=== PATIENT | female | born 1945 | race Caucasian/White ===

== ENCOUNTER 2019-12-13 11:16 | Inpatient (IN) | payer MEDICARE, OTHER ==
[2019-12-10 13:53] LABS: BASOPHILS # (AUTO) 0.1 (0.0-0.1); BASOPHILS % 0.7 % (0.0-1.0); EOSINOPHILS # (AUTO) 0.1 (0.0-0.4); EOSINOPHILS % 1.4 % (0.0-6.0); HEMATOCRIT 39.6 % (34.2-44.1); HEMOGLOBIN 10.4 g/dL (12.0-16.0); LYMPHOCYTES # (AUTO) 2.6 (1.0-3.2); LYMPHOCYTES % 29.9 % (18.0-39.1); MEAN CORPUSCULAR HEMOGLOBIN 18.7 pg (28-32); MEAN CORPUSCULAR HGB CONC 26.3 g/dL (31-35); MEAN CORPUSCULAR VOLUME 71.4 fL (81-99); MONOCYTES # (AUTO) 1.2 (0.2-0.8); MONOCYTES % 14.1 % (4.4-11.3); NEUTROPHILS # (AUTO) 4.6 (2.1-6.9); NEUTROPHILS % 53.6 % (38.7-80.0); PLATELET COUNT 540 x10e3/uL (140-360); RED BLOOD COUNT 5.55 x10e6/uL (3.6-5.1); RED CELL DISTRIBUTION WIDTH 22.7 % (11.7-14.4)
--- NOTE | 2019-12-10 14:21 | Diagnostic Imaging Report ---
EXAMINATION: CHEST 2 VIEWS INDICATION: Pre-operative COMPARISON: Chest radiograph of 01/22/2011 FINDINGS: LINES/TUBES:None LUNGS:The lungs are well-inflated. No focal consolidation or pulmonary edema. Unchanged right hemidiaphragmatic elevation. PLEURA:No pleural effusion or pneumothorax. MEDIASTINUM:The cardiomediastinal silhouette appears normal in size and shape. BONES/SOFT TISSUES:No acute osseous injury. ABDOMEN:No free air under the diaphragm. IMPRESSION: No focal pneumonia or pulmonary edema. Signed by: Diya Soto MD on 12/10/2019 2:18 PM
[~2019-12-13] VITALS: Ht 162.6 cm; Wt 65.8 kg
[~2019-12-13 11:16] MED LIST: AMLODIPINE BESYL5 MG PO; CALCET TABLET1 EACH PO; HEPARIN SOD/SOD CHLORIDE 1,000 ML ONE; IRON PO; LEVOTHYROXINE88 MCG PO; OMEPRAZOLE40 MG PO
[2019-12-13] MEDS ORDERED: ANTIBIOTIC PO (11:50)
[2019-12-13] MEDS ORDERED: CEFAZOLIN SOD 1 GM/NS 50ML 50 ML IV ONE (11:54)
[2019-12-13] MEDS ORDERED: DIPHENHYDRAMINE HCL INJ 50 MG/ML VIAL IM PRN (15:45)
[2019-12-13] MEDS: SODIUM CHLORIDE 0.9% 250ML IRRIG IR SCH ×2 (15:45→20:45)
[2019-12-13] MEDS ORDERED: MORPHINE SULFATE 1 MG/ML 30ML PCA IV PRN (15:45)
[2019-12-13] MEDS ORDERED: NALOXONE HCL INJ 0.4 MG/ML AMP IV PRN (15:45)
[2019-12-13] MEDS ORDERED: ACETAMINOPHEN 1000 MG/100 ML IV PRN (15:45)
[2019-12-13] MEDS ORDERED: ONDANSETRON HCL INJ 2MG/ML 2ML 2 MG/ML VIAL IV PRN (15:45)
[2019-12-13] MEDS ORDERED: SUGAMMADEX SODIUM 200 MG/2 ML VIAL IV ONE (16:11)
--- NOTE | 2019-12-13 16:12 | Diagnostic Imaging Report ---
TECHNIQUE: Frontal view of the chest. INDICATION: ^R/O PTX ^[id number] ^[id number] COMPARISON: 12/10/2019 DISCUSSION: Limited evaluation due to portable technique, low lung volumes and patient rotation. Lines and hardware: Right sided chest tube is noted. Right subclavian central venous catheter is noted. Enteric tube is seen coursing inferiorly out of the field of view. Heart and mediastinum: Cardio mediastinal silhouette and pulmonary vascularity are accentuated by technique. Lungs and pleura: Lungs are hypoexpanded. Negative for large pneumothorax. Hazy opacities are noted at the lung bases concerning for small effusions. Soft tissues and bones: No acute abnormality. IMPRESSION: Limited evaluation due to portable technique, patient rotation and low lung volumes. 1. Right apical chest tube and right subclavian central venous catheter are noted. Negative for large pneumothorax. 2. Central vascular congestion and hazy basilar opacity is concerning for fluid overload and small effusions. Consider follow-up with attention to inspiration and patient positioning if clinically indicated. Signed by: Vinicio Hansen MD on 12/13/2019 4:09 PM
[2019-12-13] MEDS ORDERED: FENTANYL CITRATE/PF 100MCG/2 ML INJ ONE ×2 (16:25→17:58)
[2019-12-13 16:54] LABS: BASOPHILS # (AUTO) 0.1 (0.0-0.1); BASOPHILS % 0.4 % (0.0-1.0); EOSINOPHILS % 0.3 % (0.0-6.0); HEMATOCRIT 36.4 % (34.2-44.1); HEMOGLOBIN 9.9 g/dL (12.0-16.0); LYMPHOCYTES # (AUTO) 2.4 (1.0-3.2); LYMPHOCYTES % 20.5 % (18.0-39.1); MEAN CORPUSCULAR HEMOGLOBIN 19.8 pg (28-32); MEAN CORPUSCULAR HGB CONC 27.2 g/dL (31-35); MEAN CORPUSCULAR VOLUME 72.7 fL (81-99); MONOCYTES # (AUTO) 0.6 (0.2-0.8); MONOCYTES % 5.1 % (4.4-11.3); NEUTROPHILS # (AUTO) 8.6 (2.1-6.9); NEUTROPHILS % 72.3 % (38.7-80.0); PLATELET COUNT 438 x10e3/uL (140-360); RED BLOOD COUNT 5.01 x10e6/uL (3.6-5.1); RED CELL DISTRIBUTION WIDTH 23.4 % (11.7-14.4)
[2019-12-13 17:08] LABS: ANION GAP 14.3 mmol/L (8-16); BLOOD UREA NITROGEN 5 mg/dL (7-26); BUN/CREATININE RATIO 8 (6-25); CALCIUM 8.4 mg/dL (8.4-10.2); CARBON DIOXIDE 19 mmol/L (22-29); CHLORIDE 107 mmol/L (98-107); CREATININE, SERUM 0.66 mg/dL (0.57-1.11); EST GLOMERULAR FILTRATION RATE > 60 ML/MIN (60-); GLUCOSE 160 mg/dL (74-118); POTASSIUM 3.3 mmol/L (3.5-5.1); SODIUM 137 mmol/L (136-145)
[2019-12-13] MEDS ORDERED: MIDAZOLAM HCL 2 MG/2 ML VIAL ONE (17:58)
--- NOTE | 2019-12-13 18:00 | NUR ---
Received patient from PACU patient is alert and oriented 1-2 , hard of hearing, in [employer], cleared shift totals with PACU nurse. has a right side foam dressing with chest tube and OLIVIA drain in place. NGT to continuos low wall suction. Bed in low position, breaks in place belongings and call light within reach instructed to use call light when needing assistance.
[2019-12-13 18:26] VITALS: BP 145/60
[2019-12-13] MEDS ORDERED: DEXAMETHASONE SOD PHOS INJ 4 MG/ML VIAL ONE (18:30)
[2019-12-13] MEDS ORDERED: GLYCOPYRROLATE INJ 0.2 MG/ML VIAL ONE (18:30)
[2019-12-13] MEDS ORDERED: ROCURONIUM BROMIDE 10 MG/ML 5ML VIAL IV ONE (18:30)
[2019-12-13] MEDS ORDERED: LIDOCAINE HCL 2% LOCAL INJ 5 ML SDV VIAL INJ ONE (18:30)
[2019-12-13] MEDS ORDERED: ONDANSETRON HCL INJ 2MG/ML 2ML 2 MG/ML VIAL ONE (18:30)
[2019-12-13] MEDS ORDERED: PROPOFOL IV EMULSION 10 MG/ML 20 ML VIAL ONE (18:30)
[2019-12-13] MEDS ORDERED: SEVOFLURANE INHAL SOLN 250 ML PEN BTL ONE (18:30)
[2019-12-13] MEDS ORDERED: NEOSTIGMINE 1 MG/ML 10ML VIAL ONE (18:30)
[2019-12-13 20:00] VITALS: BP 149/70
[2019-12-13] MEDS: D5.45%NS/KCL 20MEQ 1,000 ML IV SCH (21:50)
[2019-12-13] MEDS: CEFAZOLIN SOD 1 GM/NS 50ML 50 ML IV SCH (21:54)
[2019-12-13] MEDS ORDERED: CEFAZOLIN SOD 1 GM VIAL IV SCH (22:00)
[2019-12-13 22:35] VITALS: BP 149/70
[2019-12-14] VITALS (8 sets, daily range): BP systolic 113–143; BP diastolic 56–64
[2019-12-14] MEDS: SODIUM CHLORIDE 0.9% 250ML IRRIG IR SCH ×4 (01:31→11:49)
--- NOTE | 2019-12-14 03:52 | Operative Report ---
DATE OF PROCEDURE: 12/13/2019 SURGEON: Jelani Márquez MD PREOPERATIVE DIAGNOSIS: Right renal mass consistent with cancer. POSTOPERATIVE DIAGNOSES: 1. Right renal mass consistent with cancer. 2. Intentional pneumothorax. OPERATIONS PERFORMED: 1. Thoracoabdominal incision with exploration. 2. Right radical nephrectomy, complicated by the size of the tumor and the severity of the neovascularity. 3. Tube thoracostomy through a separate stab incision. MEDICAL I D SALES: Vignesh Márquez MD ANESTHESIA: General. COMPLICATIONS: None. ESTIMATED BLOOD LOSS: 500 mL. CLINICAL SUMMARY: Leanna Loo is a 74-year-old woman, who was discovered to have a renal mass on an anemia workup. The patient was also found to have small pulmonary nodules bilaterally. The patient is brought for a radical nephrectomy. She is aware of the risks of bleeding, infection, injury to adjacent structures, possible renal failure, possible need for dialysis, incomplete cancer control, need for additional procedures, and she elected to proceed. OPERATIVE PROCEDURE IN DETAIL: Informed consent was verified. Leanna Loo was properly identified, taken to the operating room, and placed on the operating table in supine position. Anesthesia was uneventfully begun. The patient's Goodwin catheter was placed and she was carefully and gently repositioned in a modified flank position with all pressure points were carefully well padded. Her abdomen, chest, and back were prepared and draped in usual sterile fashion. The 10th rib thoracoabdominal incision was then made. We entered through the chest initially by dissecting and incising just cephalad to the 10th rib. Once we entered the chest, we then split the diaphragm LigaSure as well as hemoclips as well as silk ties to control bleeders and lymphatics. The dissection was made more challenging by the rather dramatic, neovascularity exhibited by this tumor. Once we had adequate mobility of the kidney, we were able to find the patient's renal artery, this artery was doubly ligated proximally, singly ligated distally, and divided. We then completed the inferior dissection. We tied off ureter and surrounding vasculature and divided it. There did not seem to be any obvious involvement of the tumor and is fatty tissue. We then dissected the cephalad fashion of the vena cava. We identified a very large vein, which we initially thought was the renal vein; we ligated that vein and divided, and within it we found a small thrombus that is consistent with a tumor thrombus. As we proceeded cephalad, we found the main renal vein, which was the exact same size of this huge new vascularized vein. We doubly ligated the vein on the cable side and singly ligated on the kidney side, and divided the renal vein. We then completed our dissection. Copious irrigation was performed following removal of the tumor. We verified hemostasis. We placed Surgicel around the hilum as well as the liver bed, as well as the adrenal region. We placed a Suhas drain through a separate stab wound and secured to the skin with a nylon suture. Through separate stab incision, we created a tunnel and then introduced the tunnel tube thoracostomy and secured to the skin with a nylon suture. A U-stitch was left in place in order to close the chest upon removal of the chest tube. The diaphragm was approximated with 2-0 Vicryl suture. We then proceeded with closing the chest with interrupted [id number]-[id number] sutures utilizing heavy Vicryl. We approximated the costal margin with a heavy Ethibond suture and completed the closure in layers utilizing heavy Vicryl suture in interrupted [id number] fashion. We then copiously irrigated again and approximated skin with skin bianca. The drains were placed to their appropriate collection device. Sterile dressings were applied. The patient was uneventfully reversed from anesthesia and taken to recovery room in stable condition. There were no complications to the procedure. The patient tolerated the procedure well. Sponge, needle, and instrument counts were correct x2 at the end of the case. Estimated blood loss was 500 mL. We will proceed with routine postoperative care and of course ongoing urological followup. Jelani Márquez MD [place]/MODL /[id number]
[2019-12-14] MEDS: CEFAZOLIN SOD 1 GM/NS 50ML 50 ML IV SCH ×3 (05:32→21:47)
[2019-12-14 06:19] LABS: BASOPHILS % 0.3 % (0.0-1.0); EOSINOPHILS % 0.1 % (0.0-6.0); HEMATOCRIT 37.1 % (34.2-44.1); HEMOGLOBIN 9.9 g/dL (12.0-16.0); LYMPHOCYTES % 18.2 % (18.0-39.1); MEAN CORPUSCULAR HEMOGLOBIN 19.3 pg (28-32); MEAN CORPUSCULAR HGB CONC 26.7 g/dL (31-35); MEAN CORPUSCULAR VOLUME 72.5 fL (81-99); MONOCYTES % 9.3 % (4.4-11.3); NEUTROPHILS % 71.5 % (38.7-80.0); PLATELET COUNT 438 x10e3/uL (140-360); RED BLOOD COUNT 5.12 x10e6/uL (3.6-5.1); RED CELL DISTRIBUTION WIDTH 22.7 % (11.7-14.4)
[2019-12-14 06:47] LABS: ANION GAP 11.6 mmol/L (8-16); BLOOD UREA NITROGEN < 5 mg/dL (7-26); CALCIUM 8.5 mg/dL (8.4-10.2); CARBON DIOXIDE 23 mmol/L (22-29); CHLORIDE 104 mmol/L (98-107); EST GLOMERULAR FILTRATION RATE > 60 ML/MIN (60-); GLUCOSE 141 mg/dL (74-118); POTASSIUM 3.6 mmol/L (3.5-5.1); SODIUM 135 mmol/L (136-145)
[2019-12-14 06:54] LABS: BUN/CREATININE RATIO 7 (6-25)
[2019-12-14] MEDS: D5.45%NS/KCL 20MEQ 1,000 ML IV SCH (08:15)
--- NOTE | 2019-12-14 08:45 | Diagnostic Imaging Report ---
EXAMINATION: CHEST SINGLE (PORTABLE) INDICATION: Chest tube COMPARISON: Chest radiograph 12/13/2019 FINDINGS: LINES/TUBES:Support lines and tubes, including right apical chest tube, appear unchanged. LUNGS:Right lung volume is low. Left lung is moderately inflated. Bibasilar patchy opacities. Interval improvement in central vascular congestion. Unchanged elevation of the right hemidiaphragm. PLEURA:No pleural effusion or pneumothorax. MEDIASTINUM:The cardiomediastinal silhouette appears unchanged in size and shape. Atherosclerotic calcifications of the thoracic aorta. BONES/SOFT TISSUES:No acute osseous injury. ABDOMEN:No free air under the diaphragm. IMPRESSION: Interval improvement in central pulmonary vascular congestion. Otherwise, no significant interval change in bibasilar opacities and right hemidiaphragmatic elevation. No right pneumothorax with right chest tube in place. Signed by: Diya Soto MD on 12/14/2019 8:41 AM
[2019-12-14] MEDS ORDERED: HYDRALAZINE HCL 20 MG/ML VIAL IV PRN (09:15)
[2019-12-14] MEDS ORDERED: FAMOTIDINE 20 MG/2 ML VIAL IV ONE (10:10)
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
[2019-12-14] MEDS: KCL 20MEQ/.9 SOD CHL 1,000 ML IV SCH ×2 (11:11→21:48)
[2019-12-14] MEDS: LEVOTHYROXINE SODIUM 100 MCG/VIAL IV SCH (11:48)
--- NOTE | 2019-12-14 11:54 | History and Physical ---
CONSULTING PHYSICIAN: 1. Dr. Jelani Márquez. 2. Dr. Parveen Carvalho. The patient is postop right radical nephrectomy. She had a right tube thoracostomy with a chest tube in place. HISTORY OF PRESENT ILLNESS: The patient is a 74 years female with renal cell mass. The patient is status post right radical nephrectomy. She also has right thoracotomy. She had a right chest tube in place. The patient is very hard of hearing, but she is stable. NG tube remained. She is comfortable at this time. The patient is stable postoperative day #1. The patient remains on nothing by mouth. PAST MEDICAL HISTORY: Right renal cell mass, malignancy, hypertension, hypothyroidism, reflux history, and chronic anemia. PAST SURGICAL HISTORY: Status post right nephrectomy. Colonoscopy. Chest tube on the right. SOCIAL HISTORY: The patient does not smoke or use alcohol. No recreational drugs. ALLERGIES: NO KNOWN ALLERGIES. HOME MEDICATIONS: The patient is on Norvasc, levothyroxine, and omeprazole. PHYSICAL EXAMINATION: VITAL SIGNS: Temperature is 98, blood pressure 113/61, pulse rate 67, respirations 18. GENERAL: The patient is not in acute distress. NG tube right chest tube. NECK: Supple. PULMONARY: Diminished breath sounds without any wheezing. CARDIOVASCULAR: S1, S2. Regular rate and rhythm. ABDOMEN: Soft, status post right nephrectomy. EXTREMITIES: No cyanosis or edema. SCD in place. NEUROLOGIC: No focal deficit. LABORATORY DATA: Sodium 135, potassium 3.6, chloride 104, bicarb 23, BUN 5, creatinine 0.7, glucose 141. WBC 11, hemoglobin 9.9, hematocrit . Right chest tube. IMPRESSION: 1. Status post postoperative day #1 right radical nephrectomy secondary to right renal mass and malignancy. 2. Right chest tube, status post right thoracotomy to access for right nephrectomy. 3. Anemia postop. No gross bleed however. 4. Hypertension, stable. PLAN: Continue with postoperative care. IV fluids. SCD. Incentive spirometry. Monitor the patient closely. Chest tube management. Dr. Jelani Márquez, surgeon follow up postop care. Dr. Parveen Carvalho for chest tube. MD OLI Sena/MODL /[id number]
[2019-12-14] MEDS ORDERED: MORPHINE SULFATE 1 MG/ML 30ML PCA IV PRN (14:15)
[2019-12-14] MEDS: FAMOTIDINE 20 MG/2 ML VIAL IV SCH (17:51)
--- NOTE | 2019-12-14 20:10 | NUR ---
Pt. alert and oriented x3. Dressing on her R side of abd. is clean,dry,intact. Chest tube is connected to low suction is patent and intact draining serousanguinous drainage.
--- NOTE | 2019-12-14 23:00 | NUR ---
Report given to Marisa DEWITT.
--- NOTE | 2019-12-14 23:40 | NUR ---
TRANSFERRED PT. VIA BED TO ROOM 102.
--- NOTE | 2019-12-14 23:41 | NUR ---
RECEIVED REPORT FROM TRU RASMUSSEN. 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 PATIENT IN NO PAIN OR DISTRESS. CALL LIGHT WITHIN REACH. Addendum: 12/15/19 at 0002 by Cherie Cisneros RN PATIENT TRANSFERRED FROM ROOM 199
[2019-12-15] VITALS (11 sets, daily range): BP systolic 118–151; BP diastolic 56–70
[2019-12-15 05:00] LABS: BASOPHILS % 0.3 % (0.0-1.0); EOSINOPHILS # (AUTO) 0.1 (0.0-0.4); EOSINOPHILS % 1.2 % (0.0-6.0); HEMATOCRIT 37.6 % (34.2-44.1); HEMOGLOBIN 10.1 g/dL (12.0-16.0); LYMPHOCYTES # (AUTO) 1.7 (1.0-3.2); LYMPHOCYTES % 16.5 % (18.0-39.1); MEAN CORPUSCULAR HEMOGLOBIN 20.2 pg (28-32); MEAN CORPUSCULAR HGB CONC 26.9 g/dL (31-35); MEAN CORPUSCULAR VOLUME 75.4 fL (81-99); MONOCYTES # (AUTO) 1.1 (0.2-0.8); MONOCYTES % 10.6 % (4.4-11.3); NEUTROPHILS # (AUTO) 7.1 (2.1-6.9); PLATELET COUNT 380 x10e3/uL (140-360); RED BLOOD COUNT 4.99 x10e6/uL (3.6-5.1); RED CELL DISTRIBUTION WIDTH 23.4 % (11.7-14.4)
[2019-12-15] MEDS: CEFAZOLIN SOD 1 GM/NS 50ML 50 ML IV SCH ×3 (05:13→20:45)
[2019-12-15] MEDS: LEVOTHYROXINE SODIUM 100 MCG/VIAL IV SCH (05:15)
[2019-12-15 05:16] LABS: ANION GAP 14.2 mmol/L (8-16); BLOOD UREA NITROGEN < 5 mg/dL (7-26); CALCIUM 8.4 mg/dL (8.4-10.2); CARBON DIOXIDE 21 mmol/L (22-29); CHLORIDE 107 mmol/L (98-107); EST GLOMERULAR FILTRATION RATE > 60 ML/MIN (60-); GLUCOSE 88 mg/dL (74-118); POTASSIUM 4.2 mmol/L (3.5-5.1); SODIUM 138 mmol/L (136-145)
[2019-12-15 05:18] LABS: BUN/CREATININE RATIO 7 (6-25)
[2019-12-15] MEDS: KCL 20MEQ/.9 SOD CHL 1,000 ML IV SCH ×2 (06:00→21:45)
[2019-12-15] MEDS ORDERED: LEVOTHYROXINE SODIUM 88 MCG TAB PO SCH (06:00)
--- NOTE | 2019-12-15 07:12 | NUR ---
GAVE BEDSIDE SHIFT REPORT TO ONCOMING NURSE. CALL LIGHT WITHIN REACH. PATIENT IN BED. HOURLY ROUNDING PERFORMED.
[2019-12-15] MEDS ORDERED: HYDROCODONE/APAP 5MG-325MG TAB PO PRN (08:45)
[2019-12-15] MEDS ORDERED: MORPHINE SULFATE INJ 4 MG/ML INJ 1ML IV PRN (08:45)
--- NOTE | 2019-12-15 08:45 | Diagnostic Imaging Report ---
EXAMINATION: CHEST SINGLE (PORTABLE) INDICATION: Chest tube COMPARISON: Chest radiograph 12/14/2019 FINDINGS: LINES/TUBES:Right chest tube and right subclavian central venous catheter unchanged. Interval removal of enteric tube. LUNGS:The left lung is moderately inflated. Right lung volume remains low. Unchanged elevation of the right hemidiaphragm. Unchanged bibasilar patchy opacities. PLEURA:Likely trace bilateral pleural effusions. No pneumothorax. MEDIASTINUM:The cardiomediastinal silhouette appears unchanged in size and shape. Atherosclerotic calcifications of the thoracic aorta. BONES/SOFT TISSUES:No acute osseous injury. ABDOMEN:No free air under the diaphragm. IMPRESSION: Interval removal of enteric tube. Otherwise, no significant interval change. Specifically, no pneumothorax with right chest tube in place. Signed by: Diya Soto MD on 12/15/2019 8:41 AM
[2019-12-15] MEDS: PANTOPRAZOLE SOD 40 MG TABEC PO SCH (09:00)
[2019-12-15] MEDS: FAMOTIDINE 20 MG/2 ML VIAL IV SCH ×2 (09:03→18:18)
--- NOTE | 2019-12-15 09:31 | Diagnostic Imaging Report ---
EXAMINATION: CHEST SINGLE (PORTABLE) INDICATION: Chest tube removal COMPARISON: Chest radiograph of earlier the same day FINDINGS: LINES/TUBES:Interval removal of right apical chest tube. Right subclavian central venous catheter unchanged. LUNGS:Right lung volume remains low. Left lung moderately inflated. Unchanged right hemidiaphragmatic elevation and bibasilar patchy opacities. PLEURA:No pneumothorax status post right chest tube removal. MEDIASTINUM:The cardiomediastinal silhouette appears unchanged in size and shape. BONES/SOFT TISSUES:No acute osseous injury. ABDOMEN:No free air under the diaphragm. IMPRESSION: No pneumothorax status post right chest tube removal. Otherwise, no significant interval change. Signed by: Diya Soto MD on 12/15/2019 9:28 AM
[2019-12-15] MEDS ORDERED: BISACODYL 10 MG SUPP PR PRN (11:00)
[2019-12-15] MEDS ORDERED: BISACODYL 10 MG SUPP PR SCH (11:15)
[2019-12-15] MEDS: DOCUSATE SODIUM 100 MG CAP PO SCH (18:18)
--- NOTE | 2019-12-15 21:00 | NUR ---
PATIENT RESTING IN BED IN STABLE CONDITION, NO SIGNS OF DISTRESS NOTED. IV FLUIDS ARE RUNNING AT ORDERED RATE AND PATIENT VOICES NO PAIN AT THIS TIME. DRESSING NOTED TO ABDOMEN, NO DRAINAGE NOTED. BED IS IN LOWEST POSITION, BOTH SIDE RAILS ARE UP, BED ALARM IS ON, CALL LIGHT IS WITHIN EASY REACH, WILL CONTINUE TO MONITOR.
[2019-12-16] VITALS (12 sets, daily range): BP systolic 110–177; BP diastolic 57–84
[2019-12-16] MEDS: CEFAZOLIN SOD 1 GM/NS 50ML 50 ML IV SCH ×2 (06:04→11:20)
[2019-12-16] MEDS: LEVOTHYROXINE SODIUM 100 MCG/VIAL IV SCH (06:05)
--- NOTE | 2019-12-16 06:10 | NUR ---
PATIENT COMPLAINED THAT IV WAS LEAKING, DISCOVERED PATIENT'S RIGHT SUBCLAVIAN CATHETER BECAME DISLODGED. NO BLEEDING NOTED, PATIENT CLEANED AND GOWN CHANGED DUE TO IV FLUID LEAKAGE.
[2019-12-16 07:15] LABS: BASOPHILS # (AUTO) 0.1 (0.0-0.1); BASOPHILS % 0.7 % (0.0-1.0); EOSINOPHILS # (AUTO) 0.3 (0.0-0.4); EOSINOPHILS % 4.1 % (0.0-6.0); HEMATOCRIT 36.3 % (34.2-44.1); HEMOGLOBIN 9.7 g/dL (12.0-16.0); LYMPHOCYTES # (AUTO) 1.9 (1.0-3.2); LYMPHOCYTES % 27.3 % (18.0-39.1); MEAN CORPUSCULAR HEMOGLOBIN 19.5 pg (28-32); MEAN CORPUSCULAR HGB CONC 26.7 g/dL (31-35); MEAN CORPUSCULAR VOLUME 72.9 fL (81-99); MONOCYTES # (AUTO) 0.6 (0.2-0.8); MONOCYTES % 8.6 % (4.4-11.3); PLATELET COUNT 389 x10e3/uL (140-360); RED BLOOD COUNT 4.98 x10e6/uL (3.6-5.1); RED CELL DISTRIBUTION WIDTH 23.1 % (11.7-14.4)
[2019-12-16 07:30] LABS: ANION GAP 12.8 mmol/L (8-16); BLOOD UREA NITROGEN 5 mg/dL (7-26); BUN/CREATININE RATIO 7 (6-25); CALCIUM 8.7 mg/dL (8.4-10.2); CARBON DIOXIDE 23 mmol/L (22-29); CHLORIDE 107 mmol/L (98-107); EST GLOMERULAR FILTRATION RATE > 60 ML/MIN (60-); GLUCOSE 99 mg/dL (74-118); POTASSIUM 3.8 mmol/L (3.5-5.1); SODIUM 139 mmol/L (136-145)
[2019-12-16] MEDS: PANTOPRAZOLE SOD 40 MG TABEC PO SCH (08:21)
[2019-12-16] MEDS: DOCUSATE SODIUM 100 MG CAP PO SCH ×2 (08:21→16:29)
[2019-12-16] MEDS: FAMOTIDINE 20 MG/2 ML VIAL IV SCH (08:21)
[2019-12-16] MEDS ORDERED: HYDRALAZINE HCL 25 MG TAB PO PRN (09:00)
[2019-12-16] MEDS ORDERED: NIFEDIPINE CR 30 MG TAB PO SCH (09:30)
--- NOTE | 2019-12-16 09:59 | Diagnostic Imaging Report ---
EXAMINATION: CHEST SINGLE (PORTABLE) INDICATION: Chest tube removed COMPARISON: Chest radiograph of 12/15/2019 FINDINGS: LINES/TUBES:None LUNGS:Right lung volume remains low with elevation of the right hemidiaphragm. Left lung moderately inflated. Unchanged left basilar opacities. PLEURA:Trace right apical pneumothorax measures up to 3 mm. No left pneumothorax. Trace right pleural effusion. MEDIASTINUM:The cardiomediastinal silhouette appears unchanged in size and shape. BONES/SOFT TISSUES:No acute osseous injury. ABDOMEN:No free air under the diaphragm. IMPRESSION: Trace right apical pneumothorax measures up to 3 mm. Otherwise, no significant interval change. Signed by: Diya Soto MD on 12/16/2019 9:56 AM
[2019-12-16] MEDS: NIFEDIPINE CR 30 MG TAB PO SCH (10:24)
--- NOTE | 2019-12-16 12:47 | NUR ---
lau removed. 275 cl urine
--- NOTE | 2019-12-16 19:05 | NUR ---
RECEIVED REPORT FROM PREVIOUS NURSE. CALL LIGHT WITHIN REACH. PATIENT IN BED.
[2019-12-17] VITALS: BP 147/71
[2019-12-17 04:00] VITALS: BP 119/69
[2019-12-17 04:47] LABS: BASOPHILS % 0.3 % (0.0-1.0); EOSINOPHILS # (AUTO) 0.4 (0.0-0.4); EOSINOPHILS % 6.1 % (0.0-6.0); HEMATOCRIT 38.6 % (34.2-44.1); HEMOGLOBIN 10.4 g/dL (12.0-16.0); LYMPHOCYTES # (AUTO) 1.9 (1.0-3.2); LYMPHOCYTES % 33.3 % (18.0-39.1); MEAN CORPUSCULAR HEMOGLOBIN 19.4 pg (28-32); MEAN CORPUSCULAR HGB CONC 26.9 g/dL (31-35); MONOCYTES # (AUTO) 0.5 (0.2-0.8); MONOCYTES % 8.7 % (4.4-11.3); NEUTROPHILS # (AUTO) 2.9 (2.1-6.9); NEUTROPHILS % 51.4 % (38.7-80.0); PLATELET COUNT 412 x10e3/uL (140-360); RED BLOOD COUNT 5.36 x10e6/uL (3.6-5.1); RED CELL DISTRIBUTION WIDTH 23.4 % (11.7-14.4)
[2019-12-17 05:04] LABS: ANION GAP 12.7 mmol/L (8-16); BLOOD UREA NITROGEN 5 mg/dL (7-26); BUN/CREATININE RATIO 7 (6-25); CALCIUM 8.8 mg/dL (8.4-10.2); CARBON DIOXIDE 25 mmol/L (22-29); CHLORIDE 106 mmol/L (98-107); CREATININE, SERUM 0.73 mg/dL (0.57-1.11); EST GLOMERULAR FILTRATION RATE > 60 ML/MIN (60-); GLUCOSE 112 mg/dL (74-118); POTASSIUM 3.7 mmol/L (3.5-5.1); SODIUM 140 mmol/L (136-145)
[2019-12-17] MEDS ORDERED: LEVOTHYROXINE SODIUM 88 MCG TAB PO SCH (06:00)
--- NOTE | 2019-12-17 07:04 | NUR ---
GAVE BEDSIDE SHIFT REPORT TO ONCOMING NURSE. PATIENT IN BED. CALL LIGHT WITHIN REACH. HOURLY ROUNDING PERFORMED.
[2019-12-17 07:32] VITALS: BP 131/73
[2019-12-17] MEDS ORDERED: ONDANSETRON HCL 4 MG ORAL DISINTEGRATING TAB PO PRN (08:00)
--- NOTE | 2019-12-17 08:38 | Diagnostic Imaging Report ---
EXAM: CHEST 2 VIEWS DATE: 12/17/2019 6:30 AM INDICATION: Pneumothorax, right chest tube removal COMPARISON: 12/16/2019 FINDINGS: There is persistent elevation of the right hemidiaphragm with unchanged right basilar opacities which may reflect atelectasis and/or trace fluid. Stable trace residual apical pneumothorax noted. There is no evidence for new large focal consolidation or significant volume pleural effusion. The cardiomediastinal silhouette is stable in appearance. No acute osseous abnormality is identified. IMPRESSION: Stable trace residual right pneumothorax. Signed by: Dr. Rashaad Del Toro MD on 12/17/2019 8:35 AM
[2019-12-17] MEDS: PANTOPRAZOLE SOD 40 MG TABEC PO SCH (08:47)
[2019-12-17] MEDS: DOCUSATE SODIUM 100 MG CAP PO SCH (08:48)
[2019-12-17] MEDS: NIFEDIPINE CR 30 MG TAB PO SCH (08:48)
[2019-12-17 08:53] VITALS: BP 131/73
--- NOTE | 2019-12-17 09:13 | Discharge Summary ---
PRIMARY CARE PHYSICIAN: Dr. Marcella Ghotra. CONSULTANTS: 1. Jelani Márquez MD. 2. Parveen Carvalho MD. FINAL DIAGNOSES: 1. The patient is status post right radical nephrectomy and also right thoracotomy with chest tube that was subsequently removed with a small residual pneumothorax. Procedure was done by Dr. Jelani Márquez. Procedure was done on December 13, 2019. 2. Electrolyte disorder corrected. SUMMARY: A 74-year-old female with right renal mass, status post right radical nephrectomy and right thoracotomy with chest tube. Chest tubes have been removed. The patient is breathing room air at 95% oxygen saturation. She is doing much better. She is walking. She is eating, tolerating oral intake. Right surgical staple on the abdominal with the right nephrectomy is stable. There is no drainage. No redness. The patient is stable. She will go home today. The patient will go home with Tylenol No. 3 as needed for pain. Colace for stool softener and resume home medication. I will add on Keflex 500 mg 3 times a day for prophylaxis for the skin, prevention of infection. The patient is otherwise stable, discharged home today. The patient to follow up with Dr. Jelani Márquez as planned. She will follow up with her family physician, Dr. Ghotra, for medication reconciliation. The patient is otherwise stable, discharged home today. MD OLI Sena/KENNL /[id number]
[2019-12-17] MEDS ORDERED: ZOFRAN4 MG PO (09:51)
[2019-12-17] MEDS ORDERED: KEFLEX500 MG PO (09:52)
[2019-12-17] MEDS ORDERED: TYLENOL # 31 EA PO (09:54)
[2019-12-17] MEDS ORDERED: COLACE100 MG PO (09:54)
== END 2019-12-17 11:10 | disposition home or self-care (01) | DRG 657 ==
LOC: OR 11:16 → PACU V 16:06 → IMCU 17:57 → MED/SURG 12-14 23:35
PROVIDERS: ADMIT Internal Medicine; ATTEND Internal Medicine
PROC: 0W9900Z Drainage of Right Pleural Cavity with Drainage Device, Open Approach (ICD-10-PCS; 2019-12-13)
PROC: 02HV33Z Insertion of Infusion Device into Superior Vena Cava, Percutaneous Approach (ICD-10-PCS; 2019-12-13)
PROC: B548ZZA Ultrasonography of Superior Vena Cava, Guidance (ICD-10-PCS; 2019-12-13)
PROC: 30243N1 Transfusion of Nonautologous Red Blood Cells into Central Vein, Percutaneous Approach (ICD-10-PCS; 2019-12-13)
PROC: 0TT00ZZ Resection of Right Kidney, Open Approach (ICD-10-PCS; principal; 2019-12-13 13:00)
DX: C64.1 Malignant neoplasm of right kidney, except renal pelvis (principal); E87.1 Hypo-osmolality and hyponatremia; I10 Essential (primary) hypertension; D64.9 Anemia, unspecified; N28.1 Cyst of kidney, acquired; E78.00 Pure hypercholesterolemia, unspecified; K21.9 Gastro-esophageal reflux disease without esophagitis; E03.9 Hypothyroidism, unspecified; M19.90 Unspecified osteoarthritis, unspecified site; Z80.1 Family history of malignant neoplasm of trachea, bronchus and lung; Z80.8 Family history of malignant neoplasm of other organs or systems; Z82.3 Family history of stroke; R91.1 Solitary pulmonary nodule; Z11.59 Encounter for screening for other viral diseases
CPT/HCPCS: 36415; 71045; 71046; 80048; 82948; 83735; 85025; 86850; 86900; 86920; 88305; 88309; 97139; J0690; J1100; J2001; J2250; J2270; J2405; J2710; J3010; P9016; U0002